=== PATIENT | male | born 1965 | race Caucasian/White ===

== ENCOUNTER 2021-04-10 20:47 | Emergency (ER) | payer OTHER ==
[~2021-04-10] VITALS: Ht 175.3 cm; Wt 87.1 kg
[2021-04-10] MEDS ORDERED: MEDROL4 MG/DOSE- PO (21:24)
[2021-04-10] MEDS ORDERED: AZITHROMYCIN250 MG PO (21:24)
[2021-04-10] MEDS ORDERED: MUCINEX DM ER1 EACH PO (21:24)
[2021-04-10] MEDS ORDERED: VENTOLIN HFA18 GM INH (21:24)
[2021-04-10 21:30] VITALS: BP 109/75
== END 2021-04-10 21:30 | disposition home or self-care (01) ==
LOC: FSED 20:55
DX: U07.1 COVID-19 (principal); R05.9 Cough, unspecified; I10 Essential (primary) hypertension; Z94.0 Kidney transplant status
CPT/HCPCS: 99282